=== PATIENT | male | born 1945 | race Caucasian/White ===

== ENCOUNTER 2017-12-28 03:00 | Emergency (ER) | payer MEDICARE, MEDICAID ==
[2017-12-28] MEDS ORDERED: NORMAL SALINE 1000 ML 1,000 ML IV ONE (03:10)
[2017-12-28 03:19] LABS: ABSOLUTE BASOPHILS # (AUTO) 0.1 10^3/uL (0.0-0.2); ABSOLUTE EOSINOPHILS # (AUTO) 1.2 10^3/uL (0.0-0.6); ABSOLUTE LYMPHOCYTES (AUTO) 1.2 10^3/uL (0.5-4.7); ABSOLUTE MONOCYTES (AUTO) 0.6 10^3/uL (0.1-1.4); ABSOLUTE NEUT (AUTO) 9.6 10^3/uL (1.7-8.2); BASOPHILS % (AUTO) 0.8 % (0-2); EOSINOPHILS % (AUTO) 9.4 % (0-6); HEMOGLOBIN 13.6 g/dL (13.5-17.0); LYMPHOCYTES % (AUTO) 9.4 % (13-45); MEAN CORPUSCULAR HEMOGLOBIN 32.2 pg (27.0-33.4); MEAN CORPUSCULAR HGB CONC 33.9 g/dL (32.0-36.0); MEAN CORPUSCULAR VOLUME 95 fl (80-97); MONOCYTES % (AUTO) 4.5 % (3-13); PLATELET COUNT 275 10^3/uL (150-450); RED BLOOD COUNT 4.21 10^6/uL (4.35-5.55); SEGMENTED NEUTROPHILS % (AUTO) 75.9 % (42-78); TOTAL CELLS COUNTED % (AUTO) 100 %; WHITE BLOOD COUNT 12.7 10^3/uL (4.0-10.5)
[2017-12-28 03:31] LABS: ANION GAP 5 (5-19); BLOOD UREA NITROGEN 13 mg/dL (7-20); CALCIUM 9.4 mg/dL (8.4-10.2); CARBON DIOXIDE 31 mmol/L (22-30); CHLORIDE 92 mmol/L (98-107); GLUCOSE 87 mg/dL (75-110); SODIUM 128.4 mmol/L (137-145)
[2017-12-28 03:33] LABS: ALCOHOL < 10 mg/dL (NONE DETECTED)
[2017-12-28 03:41] LABS: APPEARANCE,URINE CLEAR; BILIRUBIN,URINE NEGATIVE (NEGATIVE); COLOR,URINE YELLOW; GLUCOSE, URINE NEGATIVE (NEGATIVE); KETONES,URINE NEGATIVE (NEGATIVE); LEUKOCYTE ESTERASE,URINE NEGATIVE (NEGATIVE); NITRITE,URINE NEGATIVE (NEGATIVE); PROTEIN,URINE NEGATIVE (NEGATIVE); URINE SPECIFIC GRAVITY 1.004; UROBILINOGEN,URINE NEGATIVE mg/dL (<2.0)
--- NOTE | 2017-12-28 04:50 | ER Document Report ---
ED General - General Chief Complaint: General Weakness Stated Complaint: GENERAL WEAKNESS Time Seen by Provider: 12/28/17 03:10 TRAVEL OUTSIDE OF THE [place] IN LAST 30 DAYS: No - HPI Patient complains to provider of: Generalized weakness Notes: Patient coming in today for generalized weakness. 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 Patient states he has been tired of the last few days however denies any knee pain denies any head pain chest pain abdominal pain. Patient denies any pain in the extremities. Patient states he has been patient denies any fevers chills nausea vomiting or diarrhea. Patient upon EMS arrival was found to have a lower blood pressure when standing up with a systolic of 90s. Was transported and given IV fluids and blood pressure here upon his first arrival was 120 systolic. Patient otherwise now states he feels better patient does admit to drinking alcohol daily states he sips alcohol throughout the day for his pain. Patient states that the alcohol aids his chronic pain more than any pain medication. Patient does smoke denies any drugs. - Related Data Allergies/Adverse Reactions: No Known Allergies Allergy (Verified 12/28/17 03:16) Past Medical History - Social History Smoking Status: Current Every Day Smoker Frequency of alcohol use: Heavy Drug Abuse: None Family History: Reviewed & Not Pertinent Patient has suicidal ideation: No Patient has homicidal ideation: No - Past Medical History Cardiac Medical History: Reports: Hx Congestive Heart Failure, Hx Heart Attack - x 3, Hx Hypertension Pulmonary Medical History: Reports: Hx Bronchitis, Hx COPD Renal/ Medical History: Denies: Hx Peritoneal Dialysis Musculoskeltal Medical History: Reports Hx Arthritis Review of Systems - Review of Systems Constitutional: Weakness EENT: No symptoms reported Cardiovascular: No symptoms reported Respiratory: No symptoms reported Gastrointestinal: No symptoms reported Genitourinary: No symptoms reported Male Genitourinary: No symptoms reported Musculoskeletal: No symptoms reported Skin: No symptoms reported Hematologic/Lymphatic: No symptoms reported Neurological/Psychological: No symptoms reported -: Yes All other systems reviewed and negative Physical Exam - Vital signs Vitals: Pulse Ox 97 12/28/17 03:05 Interpretation: Normal - General General appearance: Appears well, Alert Notes: Patient smells of smoke - HEENT Head: Normocephalic, Atraumatic Eyes: Normal Pupils: PERRL - Respiratory Respiratory status: No respiratory distress Chest status: Nontender Breath sounds: Normal Chest palpation: Normal - Cardiovascular Rhythm: Regular Heart sounds: Normal auscultation Murmur: No - Abdominal Inspection: Normal Distension: No distension Bowel sounds: Normal Tenderness: Nontender Organomegaly: No organomegaly Notes: Umbilical hernia no signs of incarceration easily reducible. - Extremities General upper extremity: Normal inspection, Nontender, Normal color, Normal ROM , Normal temperature General lower extremity: Normal inspection, Nontender, Normal color, Normal ROM , Normal temperature, Normal weight bearing. No: Suzette's sign - Neurological Neuro grossly intact: Yes Cognition: Normal Orientation: AAOx4 Elmer Coma Scale Eye Opening: Spontaneous Maria Teresa Coma Scale Verbal: Oriented Maria Teresa Coma Scale Motor: Obeys Commands Elmer Coma Scale Total: 15 Speech: Normal Motor strength normal: LUE, RUE, LLE, RLE Sensory: Normal - Psychological Associated symptoms: Normal affect, Normal mood - Skin Skin Temperature: Warm Skin Moisture: Dry Skin Color: Normal Course - Re-evaluation Re-evalutation: 12/28/17 04:54 Patient laboratory studies not show significant signs of etiology for the patient's weakness. Patient is now sleeping easily arousable states he is feeling much better after the IV fluids and agrees with disposition home. EKG does not show any acute changes. - Vital Signs Vital signs: Temp Pulse Resp BP Pulse Ox 97.7 F 78 14 101/56 L 94 12/28/17 03:08 12/28/17 03:18 12/28/17 04:31 12/28/17 04:31 12/28/17 04:31 - Laboratory Result Diagrams: 12/28/17 02:20 12/28/17 02:20 Laboratory results interpreted by me: 12/28/17 12/28/17 02:20 02:20 WBC 12.7 H RBC 4.21 L RDW 18.0 H Lymphocytes % 9.4 L Eosinophils % 9.4 H Absolute Neutrophils 9.6 H Absolute Eosinophils 1.2 H Sodium 128.4 L Chloride 92 L Carbon Dioxide 31 H Discharge - Discharge Clinical Impression: Weakness Condition: Good Disposition: HOME, SELF-CARE Instructions: Weakness ([facility]) Additional Instructions: Your evaluation today does not reveal any significant pathology for your weakness except for slight dehydration. We recommend that she stay well- hydrated with fluids such as water or fluids containing electrolytes such as Gatorade or Powerade. Please follow-up with your primary care provider. Return to the ER for any other concerns.
[2017-12-28 06:32] VITALS: BP 113/60
--- NOTE | 2017-12-28 10:14 | EKG REPORT ---
SEVERITY:- ABNORMAL ECG - SINUS RHYTHM FIRST DEGREE AV BLOCK LOW VOLTAGE IN FRONTAL LEADS CONSIDER ANTEROSEPTAL INFARCT BORDERLINE T ABNORMALITIES, INFERIOR LEADS : Confirmed by: Kaci Vaughan 28-Dec-2017 10:13:14
== END 2017-12-28 06:50 | disposition home or self-care (01) ==
LOC: ER 03:00
DX: R53.1 Weakness (principal); I95.9 Hypotension, unspecified; F17.200 Nicotine dependence, unspecified, uncomplicated; I10 Essential (primary) hypertension; J44.9 Chronic obstructive pulmonary disease, unspecified
CPT/HCPCS: 93005; 99285; 96360; 36415; 80307; 83735; 85025; 80048; 81001; 84484; 93010; J7030